=== PATIENT | male | born 1990 | race Two or more races ===

== ENCOUNTER 2023-12-30 11:51 | Inpatient (IN) | payer MEDICAID ==
[~2023-12-30] VITALS: Ht 175.3 cm; Wt 102.5 kg
[2023-12-30 12:26] LABS: BASOPHILS % (AUTO) 0.2 % (0.0-2.0); EOSINOPHILS % (AUTO) 0.5 % (1.0-6.0); HEMATOCRIT 48.6 % (41-53); HEMOGLOBIN 16.8 g/dL (13.5-17.5); LYMPHOCYTES # (AUTO) 0.8 K/uL (1.0-4.8); LYMPHOCYTES % (AUTO) 12.7 % (22.0-44.0); MEAN CORPUSCULAR HEMOGLOBIN 32.5 pg (26.0-34.0); MEAN CORPUSCULAR HGB CONC 34.5 G/dL (31.0-37.0); MEAN CORPUSCULAR VOLUME 94 fL (80-100); MONOCYTES # (AUTO) 0.7 K/uL (0.1-1.0); MONOCYTES % (AUTO) 10.7 % (2.0-9.0); NEUTROPHILS % (AUTO) 75.9 % (40.0-70.0); PLATELET COUNT (AUTO) 85 K/uL (150-450); RED BLOOD CELL COUNT(AUTO) 5.17 MIL/uL (4.50-5.90); RED CELL DISTRIBUTION WIDTH 13.9 % (11.5-14.5); WHITE BLOOD COUNT (AUTO) 6.5 K/uL (4.5-11.0)
[2023-12-30] MEDS ORDERED: HALOPERIDOL LACTATE 5 MG/ML VIAL ONE (12:31)
[2023-12-30] MEDS ORDERED: LORazepam 2 MG/ML VIAL ONE (12:31)
[2023-12-30] MEDS ORDERED: DiphenhydrAMINE HCL 50 MG/ML VIAL ONE (12:31)
[2023-12-30 12:32] LABS: ANION GAP 14 mmol/L (8-16); CALCIUM, TOTAL 9.3 mg/dL (8.8-10.5); CARBON DIOXIDE 22 mmol/L (22-29); CHLORIDE 100 mmol/L (98-107); CREATININE 0.89 mg/dL (0.60-1.30); GLOMERULAR FILTR. RATE CALC > 60 mL/min (>60); GLUCOSE,RANDOM 111 mg/dL (70-110); POTASSIUM 3.5 mmol/L (3.5-5.1); SODIUM SERUM 136 mmol/L (136-145); UREA NITROGEN, BLOOD 11 mg/dL (7-18)
[2023-12-30 12:37] LABS: ALANINE AMINOTRANSFERASE 95 U/L (12-78); ALBUMIN 4.3 g/dL (3.4-5.0); ALKALINE PHOSPHATASE 79 U/L (46-116); ASPARTATE AMINOTRANSFERASE 82 U/L (15-37); BILIRUBIN,TOTAL 2.7 mg/dL (0.1-1.0); TOTAL PROTEIN, SERUM 8.5 g/dL (6.4-8.2)
[2023-12-30] MEDS: DiphenhydrAMINE HCL 50 MG/ML VIAL IM ONE (12:37)
[2023-12-30] MEDS: HALOPERIDOL LACTATE 5 MG/ML VIAL IM ONE (12:38)
[2023-12-30] MEDS: LORazepam 2 MG/ML VIAL IM ONE (12:38)
[2023-12-30] MEDS: LORazepam 2 MG TABLET PO ONE (12:38)
[2023-12-30 12:57] LABS: ALCOHOL, BLOOD (SERUM) < 3 mg/dL (0-10)
[2023-12-30 13:00] LABS: COVID AG,FIA SOURCE NASAL SWAB
[2023-12-30 13:21] LABS: SARS-COV2 (COVID) ANTIGEN,FIA Negative (Negative)
[2023-12-30] MEDS: SODIUM CHLORIDE 0.9% 1,000 ML IV ONE (13:23)
[2023-12-30] MEDS: LORazepam 2 MG/ML VIAL IVP ONE (13:24)
[2023-12-30 18:12] LABS: ALCOHOL, URINE DRUG SCREEN NEGATIVE (NEGATIVE); AMPHET/METH SCREEN,URINE NEGATIVE (NEGATIVE); BARBITURATE SCREEN, URINE NEGATIVE (NEGATIVE); BENZODIAZEPINES SCREEN,URINE NEGATIVE (NEGATIVE); CANNABINOID SCREEN,URINE NEGATIVE (NEGATIVE); COCAINE SCREEN,URINE NEGATIVE (NEGATIVE); METHADONE SCREEN, URINE NEGATIVE (NEGATIVE); OPIATE SCREEN,URINE NEGATIVE (NEGATIVE); PHENCYCLIDINE SCREEN,URINE NEGATIVE (NEGATIVE)
[2023-12-30 19:03] VITALS: O2SAT 98
[2023-12-31 00:56] VITALS: BP 140/92; PULSE 126; RESP 18; TEMP 97.8; O2SAT 99
[2023-12-31] MEDS: ZOLPIDEM TARTRATE 10 MG TABLET PO PRN (01:02)
[2023-12-31] MEDS: LORazepam 2 MG TABLET PO PRN (01:02)
[2023-12-31] MEDS: HALOPERIDOL 5 MG TABLET PO PRN (01:02)
[2023-12-31] MEDS ORDERED: PNEUMOCOCCAL VACCINE POLYVALENT 0.5 ML SYRINGE [PPSV23] IM. ONE (04:30)
[2023-12-31 08:11] VITALS: BP 121/69; PULSE 83; RESP 17; TEMP 97.5; O2SAT 98
[2023-12-31 09:22] LABS: CHOL/HDL RATIO 3.2 (4.2-7.3); FREE T4 (FREE THYROXINE) 1.38 ng/dL (0.76-1.46); THYROID STIMULATING HORMONE 1.76 uIU/mL (0.36-3.74)
[2023-12-31] MEDS: SERTRALINE HCL 50 MG TABLET PO SCH (09:30)
[2023-12-31] MEDS ORDERED: ALBUTEROL SULFATE HFA 90 MCG/PUFF 8 GM INHALER IH PRN (15:45)
[2023-12-31] MEDS ORDERED: MAG HYDROX/ALUMINUM HYD/SIMETH ES 30 ML SUSPENSION UDCUP PO PRN (15:45)
[2023-12-31] MEDS ORDERED: PETROLATUM,WHITE 28 GM JELLY TP PRN (15:45)
[2023-12-31] MEDS ORDERED: GuaiFENesin/D-METHORPHAN [SUGAR-FREE] 200-20MG/10 ML SYRUP UDCUP PO PRN (15:45)
[2023-12-31] MEDS ORDERED: ACETAMINOPHEN 325 MG TABLET PO PRN (15:45)
[2023-12-31] MEDS ORDERED: CloNIDine HCL 0.1 MG TABLET PO PRN (15:45)
[2023-12-31] MEDS ORDERED: DOCUSATE SODIUM 100 MG CAPSULE PO PRN (15:45)
[2023-12-31] MEDS ORDERED: LOPERAMIDE HCL 2 MG CAPSULE PO PRN (15:45)
[2023-12-31] MEDS ORDERED: NICOTINE 14 MG/24 HOUR PATCH TD PRN (15:45)
[2023-12-31] MEDS ORDERED: MAGNESIUM HYDROXIDE SUSPENSION 30 ML UDCUP PO PRN (15:45)
[2023-12-31] MEDS ORDERED: ONDANSETRON 4 MG TABLET PO PRN (15:45)
[2023-12-31] MEDS ORDERED: IBUPROFEN 400 MG TABLET PO PRN (15:45)
[2024-01-01 08:31] VITALS: BP 153/70; PULSE 95; RESP 16; TEMP 98.5; O2SAT 100
[2024-01-01 08:33] LABS: HEMOGLOBIN A1C 4.9 % (3.8-5.6)
[2024-01-01 08:59] LABS: CHOL/HDL RATIO 2.8 (4.2-7.3); THYROID STIMULATING HORMONE 0.94 uIU/mL (0.36-3.74)
[2024-01-01] MEDS: RisperiDONE 1 MG TABLET PO SCH (20:10)
[2024-01-01 20:19] VITALS: BP 138/72; PULSE 89; RESP 17; TEMP 98.4; O2SAT 98
[2024-01-02 08:26] VITALS: BP 148/103; PULSE 113; RESP 18; TEMP 97.3; O2SAT 98
[2024-01-02] MEDS ORDERED: SERT-439 PO (12:28)
[2024-01-02] MEDS ORDERED: RISP-31 PO (12:28)
== END 2024-01-02 14:11 | disposition home or self-care (01) | DRG 775 ==
LOC: EMS 11:52 → B3A 20:19
PROVIDERS: ADMIT Psychiatry & Neurology Psychiatry; ATTEND Psychiatry & Neurology Psychiatry
DX: F19.951 Other psychoactive substance use, unspecified with psychoactive substance-induced psychotic disorder with hallucinations (principal); F10.90 Alcohol use, unspecified, uncomplicated; F32.3 Major depressive disorder, single episode, severe with psychotic features; R45.851 Suicidal ideations; Z20.822 Contact with and (suspected) exposure to COVID-19; Y90.9 Presence of alcohol in blood, level not specified; Z79.899 Other long term (current) drug therapy; Z78.1 Physical restraint status
CPT/HCPCS: 80048; 80061; 80076; 80307; 83036; 84439; 84443; 85025; 90732; 93005; 99291; G0480; J1200; J1630; J2060; J7030